=== PATIENT | male | born 1970 | race Two or more races ===

== ENCOUNTER 2020-08-24 12:32 | Outpatient (CLI) | payer OTHER | END 2020-08-24 23:59 | disposition home or self-care (01) | LOC: LAB 12:32 | PROVIDERS: ATTEND Surgery | DX: Z01.812 Encounter for preprocedural laboratory examination (principal); Z20.828 Contact with and (suspected) exposure to other viral communicable diseases | CPT/HCPCS: 87426; C9803 ×2; U0003 ==

== ENCOUNTER 2020-08-31 07:48 | Day surgery (SDC) | payer OTHER ==
[2020-08-31] MEDS ORDERED: BUPIVACAINE 0.5 % PF 150 MG/30 ML VIAL ONE (07:52)
[2020-08-31] MEDS ORDERED: LIDOCAINE MPF 1%-EPI 1:200,000 30 ML VIAL IJ ONE (07:52)
[2020-08-31] MEDS ORDERED: ANESTHESIA TRAY IN PYXIS 1 EA TRAY MC ONE (08:36)
[2020-08-31] MEDS ORDERED: MIDAZOLAM HCL 2 MG/2ML VIAL ONE (11:20)
[2020-08-31] MEDS ORDERED: FENTANYL PF 250MCG/5ML AMPUL ONE (11:20)
[2020-08-31] MEDS ORDERED: HYDROMORPHONE INJ 2 MG/ML DISP.SYRIN ONE (11:21)
[2020-08-31] MEDS ORDERED: ROCURONIUM BROMIDE 50 MG/5 ML ONE (11:22)
[2020-08-31] MEDS ORDERED: FAMOTIDINE/PF INJ 20 MG/2 ML VIAL IV ONE (11:22)
[2020-08-31] MEDS ORDERED: MORPHINE SULFATE INJ 2 MG/ML DISP.SYRIN IV PRN (12:00)
[2020-08-31] MEDS ORDERED: IBUPROFEN 600 MG TABLET PO PRN (12:00)
[2020-08-31] MEDS ORDERED: ACETAMINOPHEN 325 MG TABLET PO PRN (12:00)
[2020-08-31] MEDS ORDERED: SEVOFLURANE 250 ML BOTTLE IH ONE (12:20)
== END 2020-08-31 14:55 | disposition home or self-care (01) ==
LOC: DS 07:48
PROVIDERS: ATTEND Surgery
DX: K40.90 Unilateral inguinal hernia, without obstruction or gangrene, not specified as recurrent (principal)
CPT/HCPCS: 49650; C1874; J0690; J1170; J2250; J2704; J2765; J3010; J3490 ×5